=== PATIENT | male | born 1945 | race Caucasian/White ===

== ENCOUNTER 2023-11-12 09:38 | Emergency (ER) | payer MEDICARE, BC ==
[~2023-11-12] VITALS: Ht 188 cm; Wt 81.1 kg
[~2023-11-12 09:38] MED LIST: AMLO10TA13 PO; APIX5TAB3 PO; CARV-50 PO; LISI20TA28 PO; MULT-1085 PO; NAPR220C15 PO; OMEP20TA43 PO
[2023-11-12] MEDS: LIDOcaine 1% 30ml preserv. free vial IJ STA (09:57)
[2023-11-12 09:59] VITALS: BP 116/86; PULSE 63; RESP 22; TEMP 97.3; O2SAT 100
[2023-11-12] MEDS: TETanus/Pertussis (Acell)/Diphther VAC/PF (Tdap-Adult) 0.5ml syringe IMVAC ONE (11:38)
== END 2023-11-12 12:19 | disposition home or self-care (01) ==
LOC: ER 09:39
DX: S62.626A Displaced fracture of middle phalanx of right little finger, initial encounter for closed fracture (principal); Z79.899 Other long term (current) drug therapy; W01.0XXA Fall on same level from slipping, tripping and stumbling without subsequent striking against object, initial encounter; Y93.89 Activity, other specified; Y92.89 Other specified places as the place of occurrence of the external cause; Y99.8 Other external cause status
CPT/HCPCS: 26742; 73140; 90471; 90715; 99284